=== PATIENT | female | born 1940 | race African-American/Black ===

== ENCOUNTER → 2017-03-25 | Outpatient (CLI) | payer OTHER ==
[~2017-03-25] VITALS: Ht 165.1 cm; Wt 70.3 kg
[~2017-03-25] MED LIST: ASCORBIC ACID100 MG PO; ATARAX,VISTARIL25 MG PO; ATIVAN1 MG PO; B-COMPLEX-VITA1 EACH PO; BENADRYL ALLERG25 MG PO; BONIVA150 MG PO; CALCIUM 600 +1 EAC4 PO; CYANOCOBALAM1000 MCG PO; FLOVENT DISKUS1 DIS2 IH; LIPITOR10 MG PO; MELATONIN10 M2 PO; PRILOSEC20 MG PO; SUPREP BOWEL P354 ML PO; VITAMIN D31000 UNIT PO; XALATAN2.5 ML LEFT EYE
[2017-03-25 09:32] LABS: HEMATOCRIT 38.5 % (36.0-46.0); MCV 91.9 FL (83-99)
== END | disposition home or self-care (01) ==
LOC: AMB 08:47
PROVIDERS: Internal Medicine
DX: D12.8 Benign neoplasm of rectum (principal); K29.50 Unspecified chronic gastritis without bleeding; K21.9 Gastro-esophageal reflux disease without esophagitis; D64.9 Anemia, unspecified
CPT/HCPCS: 85014; 85018; 88305; 88342 TC; 93005; J2250

== ENCOUNTER 2017-05-08 06:04 | Day surgery (SDC) | payer OTHER ==
[~2017-05-08] VITALS: Ht 168.9 cm; Wt 69.4 kg
[2017-05-08 06:30] VITALS: BP 161/79
[2017-05-08] MEDS ORDERED: FLONASE16 G1 BOTH NARES (06:48)
[2017-05-08] MEDS ORDERED: LORTAB 5-325 M1 EACH PO (10:46)
[2017-05-08 11:47] VITALS: BP 182/83
[2017-05-08 12:42] VITALS: BP 152/77
[2017-05-08 13:18] VITALS: BP 146/81
== END 2017-05-08 13:18 | disposition home or self-care (01) ==
LOC: SDC 06:04 → NUC 07:00 → SDC 13:18
DX: C50.012 Malignant neoplasm of nipple and areola, left female breast (principal); K21.9 Gastro-esophageal reflux disease without esophagitis; E78.5 Hyperlipidemia, unspecified; E11.9 Type 2 diabetes mellitus without complications; I25.2 Old myocardial infarction; I10 Essential (primary) hypertension; Z95.5 Presence of coronary angioplasty implant and graft; Z88.2 Allergy status to sulfonamides; Z79.84 Long term (current) use of oral hypoglycemic drugs; Z79.82 Long term (current) use of aspirin
CPT/HCPCS: 78195; 78999; 88305; 88307; 88360; A9541; J0330; J0690; J1100; J2250; J2405; J3010; S0020